=== PATIENT | male | born 1955 | race Caucasian/White ===

== ENCOUNTER → 2016-06-05 | Outpatient (CLI) | payer BC ==
[2016-06-05 09:35] LABS: Basophils % (A) 1 %; CH 32.1; CHCM 34.6; Eosinophils # (A) 0.1 k/uL (0-0.7); Eosinophils % (A) 2 %; HCT 47.3 % (39.0-53.0); HDW 2.47; HGB 15.9 gm/dL (13.0-17.5); Luc # (Auto) 0.23; Luc % (Auto) 3; Lymphocytes # (A) 1.5 k/uL (1.0-4.8); Lymphocytes % (A) 19 %; MCH 31.2 pg (25.0-35.0); MCHC 33.5 g/dL (31.0-37.0); Mean Platelet Volume 6.4; Monocytes # (A) 0.6 k/uL (0-1.0); Monocytes % (A) 7 %; Neutrophils # (A) 5.3 k/uL (1.3-7.7); Neutrophils % (A) 69 %; RBC 5.08 m/uL (4.30-5.90); RDW 13.2 % (11.5-15.5); WBC 7.7 k/uL (3.8-10.6); WBC (Perox) 8.11
== END | disposition home or self-care (01) ==
LOC: LABPAT 09:02
PROVIDERS: ATTEND Anesthesiology
DX: Z01.812 Encounter for preprocedural laboratory examination (principal); Z01.810 Encounter for preprocedural cardiovascular examination
CPT/HCPCS: 85025; 93005

== ENCOUNTER 2016-06-06 10:16 | Day surgery (SDC) | payer BC ==
--- NOTE | 2016-05-26 15:51 | HP ---
DATE OF ADMISSION: 06/06/2016 CHIEF COMPLAINT: Incarcerated incisional hernia. HISTORY OF PRESENT ILLNESS: Patient is a 60-year-old male who presents to the office complaining of a small bulge in the upper midline. The patient had a previous laparoscopic appendectomy performed by Dr. Taylor frank in 1990. The patient has noticed a bulge in that area that is increasing in size. He has mild discomfort at that location. He denies any change in bowel habits. PAST MEDICAL HISTORY: Diverticulitis, hypothyroidism. PAST SURGICAL HISTORY: Lap carol, endoscopy. MEDICATIONS: Synthroid, Androgel. ALLERGIES: DEMEROL. PHYSICAL EXAMINATION: GENERAL: Well-developed, well-nourished male in no distress. HEENT: Normocephalic. Sclerae nonicteric. CHEST: No deformities. ABDOMEN: Soft, nondistended. Small incarcerated hernia present at the upper midline trocar site, minimally tender. No other hernias identified. IMPRESSION: A 58-year-old male with incarcerated incisional hernia. PLAN: Will proceed with operative repair with mesh on 06/06. The risks of bleeding, infection, postoperative pain, scarring, numbness and recurrence were discussed. The patient understands and wishes to proceed.
[2016-06-04 09:40] VITALS: BMI 32.5
[~2016-06-06 10:16] MED LIST: DEXAMETHASONE SOD PHOSPHATE 10 MG/ML 1 ML VIAL IV ONE; HEPARIN SODIUM,PORCINE 5,000 UNIT/ML 1 ML VIAL SQ ONE; HYDROmorphone 1 MG/ML 1 ML SYRINGE IVP PRN; LACTATED RINGERS 1,000 ML IV SCH; MIDAZOLAM 2 MG/2 ML VIAL IV PRN; ONDANSETRON 4 MG/2 ML VIAL IVP ONE; SCOPOLAMINE 1.5MG/72HR PATCH TRANSDERM ONE; ceFAZolin 2 GM in SODIUM CHLORIDE 0.9% 100 ML IVPB ONE
[2016-06-06] MEDS ORDERED: LIDOCAINE 1% 20 ML VIAL (10MG/ML) FOR IV START INTRADERMA ONE (10:34)
[2016-06-06] MEDS ORDERED: MIDAZOLAM 2 MG/2 ML VIAL ONE (13:06)
[2016-06-06] MEDS ORDERED: ePHEDrine 50 MG/ML 1 ML AMP ONE (13:06)
[2016-06-06] MEDS ORDERED: ROCURONIUM BROMIDE 10 MG/ML 10 ML VIAL IV ONE (13:06)
[2016-06-06] MEDS ORDERED: NEOSTIGMINE 1 MG/ML 10 ML VIAL ONE (13:06)
[2016-06-06] MEDS ORDERED: SUCCINYLCHOLINE CHLORIDE 100 MG/5 ML SYR IV ONE (13:06)
[2016-06-06] MEDS ORDERED: LIDOCAINE 1% INJ 10MG/ML (20 ML MDV) ONE (13:06)
[2016-06-06] MEDS ORDERED: fentaNYL (PF) 50 MCG/ML 2 ML AMP ONE (13:06)
[2016-06-06] MEDS ORDERED: GLYCOPYRROLATE 0.2 MG/ML 2 ML VIAL ONE (13:06)
[2016-06-06] MEDS ORDERED: PROPOFOL 10 MG/ML 20 ML VIAL IV ONE (13:06)
[2016-06-06] MEDS ORDERED: LACTATED RINGERS 1,000 ML IV ONE ×3 (13:11)
[2016-06-06] MEDS ORDERED: BUPIVACAIN-EPI 0.25%-1:200,000 30 ML VIAL SQ ONE ×2 (13:25→13:53)
[2016-06-06] MEDS ORDERED: HYDROcodone/APAP 5-325MG 1 EACH TAB PO PRN (14:00)
[2016-06-06] MEDS ORDERED: NALOXONE 0.4 MG/ML 1 ML VIAL IV PRN (14:00)
[2016-06-06 14:15] VITALS: TEMP 97.9
[2016-06-06] MEDS ORDERED: KETOROLAC 30 MG/ML 1 ML VIAL IVP ONE (14:17)
--- NOTE | 2016-06-06 15:10 | P.PCN ---
Date of Procedure: 06/06/16 Procedure(s) Performed: PREOPERATIVE DIAGNOSIS: Incarcerated incisional hernia POSTOPERATIVE DIAGNOSIS: Same PROCEDURE: Repair incarcerated incisional hernia with mesh SURGEON: Valentin EBL: 5 mL ANESTHESIA: General COMPLICATIONS: None OPERATIVE PROCEDURE: The patient was placed in the operating table in the supine position. The previous upper abdominal incision was re-incised and lengthened somewhat. Dissection through the subcutaneous tissues took place using electrocautery. The patient had a large hernia present with a portion of fat coming from the preperitoneal space extending into the subcutaneous fat. This was carefully dissected away from the surrounding structures. This portion of fatty tissue measured approximately 5 x 6 cm. This is able to be reduced back into the preperitoneal space. The fascial defect itself only measured about 1.5 cm in diameter. The 4 cm ventral ex mesh was placed into the preperitoneal space and flattened out appropriately. This was secured to the fascia using trans-fascial 0 Ethibond sutures. The defect was then closed horizontally using [id number] 0 Ethibond sutures. The subcutaneous tissue then closed using 3-0 Vicryl sutures and the skin using a running 4-0 Monocryl stitch. Steri-Strips and sterile dressings were then applied. DISPOSITION: Stable to recovery room
[2016-06-06] MEDS ORDERED: HYDROcodone/APAP 5-325MG 1 EACH TAB PO ONE (15:15)
[2016-06-06 15:32] VITALS: RESP 18
[2016-06-06 16:16] VITALS: BP 149/87; PULSE 79
== END 2016-06-06 16:13 | disposition home or self-care (01) ==
LOC: OR 10:16
PROVIDERS: ATTEND Surgery
DX: K43.0 Incisional hernia with obstruction, without gangrene (principal); E03.9 Hypothyroidism, unspecified; I10 Essential (primary) hypertension; F17.200 Nicotine dependence, unspecified, uncomplicated; Z79.82 Long term (current) use of aspirin; Z79.899 Other long term (current) drug therapy; Z88.5 Allergy status to narcotic agent
CPT/HCPCS: 49561; 49568; C1781; J2250; J1644; J1100; J2710; J0690; J2405; J2001; J3010; J1885; J0330; J2704